=== PATIENT | male | born 1955 | race American Indian/Alaskan Native ===

== ENCOUNTER 2018-01-17 06:57 | Inpatient (IN) | payer MEDICARE, OTHER ==
[2018-01-17 07:10] VITALS: BMI 25.7
--- NOTE | 2018-01-17 07:16 | ED PDOC ---
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 Patient reports he may have had diarrhea over the past week associated with being unable to urinate causing him penile/ suprapubic pain, which has resolved after urinating. Patient notes last time he urinated was one day ago and that his abdominal pain started after being unable to urinate and states he had a penile implant in 2009. He reports last time he deflated his penis was 1 week ago after sex. He notes that he has kept it inflated since, because some times he forgets to. Patient takes Aspirin on a daily basis and is currently declining chest pain, shortness of breath, headache, fever, chills, cough, nausea, vomiting, dizziness or other complaints. No recent abx. PMD: Dr. May URO: Dr. 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) Hx Glaucoma: Yes - Renal Hx Renal Disorder: Yes Other/Comment: right kidney scar tissue - Endocrine/Metabolic Hx Diabetes Mellitus Type 1: Yes (dx 26 yrs old) - Hematological/Oncological Hx Blood Transfusions: Yes Hx Blood Transfusion Reaction: No - Integumentary Hx Dermatological Disorder: No Other/Comment: r ft foul smell gangrenous areas open red skin multiple ulcers black tip of great toe, pain and swelling, purulent drainage 2nd r toe ulcer, swelling +2 dry skin noted to ankle - Musculoskeletal/Rheumatological Hx Falls: No - Gastrointestinal Hx Gastrointestinal Disorders: No - Genitourinary/Gynecological Hx Genitourinary Disorders: Yes Hx Prostate Problems: Yes (ca) - Psychiatric Hx Substance Use: No - Surgical History Other/Comment: Kidney, Prostate - Anesthesia Hx Anesthesia Reactions: No Hx Malignant Hyperthermia: No Family/Social History - Physician Review Nursing Documentation Reviewed: Yes Family/Social History: Unknown Family HX Smoking Status: Never Smoked Hx Alcohol Use: No Hx Substance Use: No Allergies/Home Meds Allergies/Adverse Reactions: Allergies No Known Allergies Allergy (Verified 07/02/15 16:14) Home Medications: Home Meds Medication Instructions Recorded Confirmed Bimatoprost [Lumigan] 0.01 % EACHEYE HS 06/19/15 01/17/18 Brimonidine Tartrate/Timolol 1 drop OP BID 06/19/15 01/17/18 [Combigan Eye Drops] Carvedilol [Coreg] 3.125 mg PO BID 06/19/15 01/17/18 Dorzolamide 2%/Timolol 0.5% 1 drop OP BID 06/19/15 01/17/18 [Cosopt 2%-0.5% Opht] Insulin Human NPH/Reg [HumuLIN 20 units SC BRKDIN 06/19/15 01/17/18 70/30 (NPH/Reg)] Sitagliptin Phosphate [Januvia] 100 mg PO DAILY 06/19/15 01/17/18 Tamsulosin [Flomax] 0.4 mg PO HS 06/19/15 01/17/18 Tramadol HCl [Ultram] 50 mg PO BID PRN 08/31/15 01/17/18 Valsartan [Diovan] 180 mg PO DAILY 08/31/15 01/17/18 Aspirin [Ecotrin] 81 mg PO DAILY 01/17/18 01/17/18 Review of Systems - Review of Systems Constitutional: absent: Fevers ENT: absent: Sinus Congestion Respiratory: absent: SOB Cardiovascular: absent: Chest Pain Gastrointestinal: Stool Changes, Diarrhea, Hematochezia. absent: Abdominal Pain , Vomiting Genitourinary Male: Urinary Output Changes Musculoskeletal: absent: Back Pain Skin: absent: Rash Neurological: absent: Headache, Dizziness Endocrine: absent: Diaphoresis Physical Exam Vital Signs Reviewed: Yes Vital Signs Temp Pulse Resp BP Pulse Ox 01/17/18 08:45 85 18 138/68 98 01/17/18 07:10 98.3 F 71 20 163/84 H 97 01/17/18 06:57 98.3 F 71 20 163/84 H 97 Temperature: Afebrile Blood Pressure: Hypertensive Pulse: Regular Respiratory Rate: Normal Appearance: Positive for: Well-Appearing, Non-Toxic, Comfortable Pain Distress: None Mental Status: Positive for: Alert and Oriented X 3 - Systems Exam Head: Present: Atraumatic, Normocephalic Pupils: Present: PERRL Extroacular Muscles: Present: EOMI Respiratory/Chest: Present: Clear to Auscultation, Good Air Exchange. No: Respiratory Distress, Accessory Muscle Use, Wheezes, Rales, Retracting, Rhonchi Cardiovascular: Present: Regular Rate and Rhythm, Normal S1, S2. No: Murmurs Abdomen: Present: Normal Bowel Sounds. No: Tenderness, Distention, Peritoneal Signs Genitourinary Male: Present: Other (nurse noted bloody d/c from penile head; patient states he is unable to deflate ). No: Circumcised Penis, Lesions, Penile Discharge, Testicle Tenderness, Penile Swelling, Hernias, Testicle Swelling, Prostate Tenderness Lower Extremity: Present: Normal Inspection, Other (below the knee amputation ( RT foot) ). No: Edema Neurological: Present: GCS=15, CN II-XII Intact, Speech Normal Skin: Present: Warm, Dry, Normal Color. No: Rashes Psychiatric: Present: Alert, Oriented x 3, Normal Insight, Normal Concentration Medical Decision Making ED Course and Treatment: 01/17/18 Impression: 62 yr old male w/ hx of penile implant (inner pump), HTN, Gangrenous foot w/ L BKA amputation p/w ?hematocheiza and +hematuria. Pt unclear as to whether or not blood came from urine or stool. Pt is blind and states his neighbor saw his bloody towels on the floor with blood in the toilet seat. Pt notes pain is only associated with urinary retention, for which has been fully resolved. Guaic Negative on exam. Noted to have bloody discharge from penis w/ notable erection. Given clots noted need for possible sinha, however pt has had previous implant with instrumentation, hx of prostate CA and on ASA, and is currently voiding normally. Pt will likely require urology consult. [place] sinha placed. He denies any recent abx, but notes diarrhea is not associated w/ abdominal pain. No chest pain or sob. He notes he is no longer on plavix. Plan: -- EKG -- Labs -- Urinalysis -- Reassess and disposition Progress Notes: 01/17/18 EKG: Ordered, reviewed, and independently interpreted the EKG. Rate : 79 BPM Rhythm : NSR Interpretation : No ST-segment elevations or depressions, no T-wave inversions, normal intervals. No stemi 01/17/18 08:[address] May, who is aware of plan and recommends Dr. Edmond for urology. 01/17/18 09:10 labs reviewed, mildly anemic. Cr 1.0 will image. Case discussed with Dr. Edmond, who is aware of plan and is requesting CT scan. Started on Rocephin for UTI. UC sent. Given protonix for ?hematochezia. Admitted to Dr. May 01/17/18 10:12 - Lab Interpretations Lab Results: 01/17/18 07:05 01/17/18 07:05 Lab Results 01/17/18 09:01: PT 12.3, INR 1.07, APTT 34.6 01/17/18 07:05: Blood Type O POSITIVE, Antibody Screen Negative, BBK History Checked Patient has bt 01/17/18 07:05: Lactic Acid 1.3 01/17/18 07:05: Sodium 140, Potassium 4.1, Chloride 103, Carbon Dioxide 25, Anion Gap 16, BUN 14, Creatinine 1.0, Est GFR ( Amer) > 60, Est GFR (Non- Af Amer) > 60, Random Glucose 126 H, Calcium 9.6, Magnesium 1.9, Total Bilirubin 0.5, AST 65 H, ALT 50, Alkaline Phosphatase 438 H, Total Protein 8.6 H , Albumin 4.2, Globulin 4.3, Albumin/Globulin Ratio 1.0 L, Lipase 37 01/17/18 07:05: Urine Color Red, Urine Appearance Bloody, Urine pH 7.0, Ur Specific [place] 1.015, Urine Protein >=300 H, Urine Glucose (UA) Negative, Urine Ketones Trace H, Urine Blood Large H, Urine Nitrate Positive H, Urine Bilirubin Small H, Urine Urobilinogen 1.0 H, Ur Leukocyte Esterase Moderate H, Urine RBC Tntc, Urine WBC 5 - 10 01/17/18 07:05: WBC 6.9 D, RBC 4.19, Hgb 11.4 L, Hct 33.0 L, MCV 78.8 L, MCH 27.2, MCHC 34.5, RDW 14.0, Plt Count 163, MPV 9.7, Gran % 73.5 H, Lymph % (Auto ) 15.9 L, [place] % (Auto) 8.9 H, Eos % (Auto) 1.6, Baso % (Auto) 0.1, Gran # 5.09 , Lymph # (Auto) 1.1 L, [place] # (Auto) 0.6, Eos # (Auto) 0.1, Baso # (Auto) 0.01 - RAD Interpretation Radiology Orders: 01/17/18 09:16 ABD & PELVIS IV CONTRAST ONLY [CT] Stat - Medication Orders Current Medication Orders: Ceftriaxone Sodium (Rocephin 1 Gram Ivpb) 1 gm in 100 mls @ 100 mls/hr IVPB ONCE ONE PRN Reason: Protocol Stop: 01/17/18 10:06 Last Admin: 01/17/18 09:20 Dose: 100 mls/hr eMAR Start Stop Document 01/17/18 09:20 SRE (Rec: 01/17/18 09:21 [id number]) Intravenous Solution Start Date 01/17/18 Start Time 09:21 End Date 01/17/18 End time 10:20 Total Infusion Time 59 Sodium Chloride (Sodium Chloride 0.9%) 1,000 mls @ 200 mls/hr IV .Q5H [facility] Last Admin: 01/17/18 09:22 Dose: 200 mls/hr eMAR Start Stop Document 01/17/18 09:22 SRE (Rec: 01/17/18 09:23 [email or web address] [id number]) Intravenous Solution Start Date 01/17/18 Start Time 09:30 End Date 01/17/18 End time 14:30 Total Infusion Time 300 Discontinued Medications Pantoprazole Sodium (Protonix Ec Tab) 40 mg PO STAT STA Stop: 01/17/18 09:09 Last Admin: 01/17/18 09:19 Dose: 40 mg - Scribe Statement The provider has reviewed the documentation as recorded by the Wayne Mcfarlane Provider Catiaibe Attestation: All medical record entries made by the Scribe were at my direction and personally dictated by me. I have reviewed the chart and agree that the record accurately reflects my personal performance of the history, physical exam, medical decision making, and the department course for this patient. I have also personally directed, reviewed, and agree with the discharge instructions and disposition. Disposition/Present on Arrival - Present on Arrival Any Indicators Present on Arrival: No History of DVT/PE: No History of Uncontrolled Diabetes: No Urinary Catheter: No History Surgical Site Infection Following: None - Disposition Have Diagnosis and Disposition been Completed?: Yes Diagnosis: Hematuria, Priapism, unspecified, History of penile implant Disposition: HOSPITALIZED Disposition Time: 09:10 Patient Plan: Admission Condition: GOOD
[2018-01-17 08:22] LABS: BASO # 0.01 K/mm3 (0.0-2.0); BASO % 0.1 % (0.0-3.0); EOS # 0.1 (0.0-0.7); EOS % 1.6 % (1.5-5.0); GRAN # 5.09 (1.4-6.5); GRAN % 73.5 % (50.0-68.0); HEMOGLOBIN 11.4 g/dL (14.0-18.0); LYMPH # 1.1 (1.2-3.4); LYMPH % 15.9 % (22.0-35.0); MEAN CELL VOLUME 78.8 fl (80.0-105.0); MEAN CORPUSCULAR HEMOGLOBIN 27.2 pg (25.0-35.0); MEAN CORPUSCULAR HGB CONC 34.5 g/dl (31.0-37.0); MEAN PLATELET VOLUME 9.7 fl (7.0-11.0); MONO # 0.6 (0.1-0.6); MONO % 8.9 % (1.0-6.0); RBC 4.19 10^6/uL (3.5-6.1); WHITE BLOOD COUNT 6.9 10^3/ul (4.5-11.0)
[2018-01-17 08:29] LABS: ALBUMIN 4.2 g/dL (3.0-4.8); ALT/SGPT 50 U/L (7-56); AST/SGOT 65 U/L (17-59); BLOOD UREA NITROGEN 14 mg/dL (7-21); CALCIUM 9.6 mg/dL (8.4-10.5); GFR AFRICAN-AMERICAN > 60; GFR NON-AFRICAN AMERICAN > 60; LIPASE 37 U/L (23-300)
[2018-01-17 08:46] LABS: URINE BILIRUBIN SMALL (NEGATIVE); URINE BLOOD LARGE (NEGATIVE); URINE GLUCOSE (UA) NEGATIVE (NEGATIVE); URINE LEUKOCYTE ESTERASE MODERATE Leu/uL (NEGATIVE); URINE PROTEIN >=300 mg/dL (<30 mg/dL)
[2018-01-17 08:49] LABS: URINE APPEARANCE BLOODY (CLEAR); URINE COLOR RED (YELLOW)
[2018-01-17 09:03] LABS: URINE RBC TNTC /hpf (0-2)
[2018-01-17] MEDS ORDERED: cefTRIAXone 1 gm 1 GM/100 ML BAG IVPB ONE (09:07)
[2018-01-17] MEDS ORDERED: Pantoprazole 40 mg EC Tab PO STA (09:08)
[2018-01-17 09:19] LABS: INR 1.07; PARTIAL THROMBOPLASTIN TIME 34.6 Seconds (25.1-36.5); PROTHROMBIN TIME 12.3 SECONDS (9.4-12.5)
[2018-01-17] MEDS: Sodium Chloride 0.9% 1,000 ML IV SCH ×2 (09:22→14:52)
[2018-01-17] MEDS ORDERED: Iodixanol 320 mg/ml 150 ml Bottle IV ONE (09:51)
--- NOTE | 2018-01-17 09:55 | CARD ---
APPROVED REPORT Date of service: 01/17/2018 EKG Measurement Heart [id number] <Conclusion> Normal sinus rhythm Possible Left atrial enlargement Borderline ECG
--- NOTE | 2018-01-17 11:01 | CT ---
Date of service: 01/17/2018 PROCEDURE: CT Abdomen and Pelvis with contrast HISTORY: hx RCC, nephrectomy penile implant w/ hematuria COMPARISON: None. TECHNIQUE: Contrast dose: 150 cc of Visipaque Radiation dose: Total exam DLP = 838 mGy-cm. This CT exam was performed using one or more of the following dose reduction techniques: Automated exposure control, adjustment of the mA and/or kV according to patient size, and/or use of iterative reconstruction technique. FINDINGS: LOWER THORAX: Unremarkable. LIVER: Unremarkable. No gross lesion or ductal dilatation. GALLBLADDER AND BILE DUCTS: Unremarkable. PANCREAS: Unremarkable. No gross lesion or ductal dilatation. SPLEEN: Unremarkable. ADRENALS: Unremarkable. No mass. KIDNEYS AND URETERS: There is some parenchymal scarring in the posterior aspect of the left kidney consistent with a previous partial nephrectomy. The kidneys are otherwise unremarkable. VASCULATURE: Unremarkable. No aortic aneurysm. BOWEL: There is mural thickening in the descending and sigmoid colon. This may be due in part to lack of distension. Colitis cannot be excluded. APPENDIX: Normal appendix. PERITONEUM: Unremarkable. No free fluid. No free air. LYMPH NODES: Unremarkable. No enlarged lymph nodes. BLADDER: There are no bladder lesions. There is a penile implant with a reservoir to the right side of the bladder REPRODUCTIVE: Unremarkable. BONES: No acute fracture. OTHER FINDINGS: None. IMPRESSION: There is some parenchymal scarring in the posterior aspect of the left kidney consistent with a previous partial nephrectomy. The kidneys are otherwise unremarkable. There is mural thickening in the descending and sigmoid colon. This may be due in part to lack of distension. Colitis cannot be excluded.
--- NOTE | 2018-01-17 13:02 | HP ---
Copied To: JUAN MIGUEL Lopez MD Attending MD: JUAN MIGUEL Lopez MD DATE OF EXAM: 01/17/2018 HISTORY OF PRESENT ILLNESS: The patient is a 62-year-old male admitted through the emergency department with gross hematuria x1-2 days. The patient has mild suprapubic discomfort. Denies fever, chills. No nausea, no vomiting. No diarrhea. The patient has a history of left partial nephrectomy for renal cell carcinoma in the past as well as history of erectile dysfunction secondary to diabetes and vascular disease, status post penile implant. The patient also has a history of CA of prostate in the past. He is admitted for further evaluation and treatment. PAST MEDICAL HISTORY: Includes type 2 diabetes mellitus xgreater than 20 years, hypertension. The patient has a history of CVA with mild right hemiparesis. He also has a history of glaucoma with blindness. PAST SURGICAL HISTORY: The patient is status post partial nephrectomy, status post penile implant, history of CA of the prostate. The patient is also status post right below-knee amputation for gangrene of the right lower extremity. CURRENT MEDICATIONS: The patient's current medications include Diovan 180 mg daily, tramadol 50 mg twice daily, Flomax 0.4 mg daily, Januvia 100 mg daily, Humulin 70/30 55 units in the morning 50 units at night, carvedilol 3.125 mg twice daily, Januvia 100 mg daily, Ecotrin 81 mg daily. He is also on Lumigan, Combigan and Cosopt eyedrops for his glaucoma. ALLERGIES: THE PATIENT HAS NO KNOWN DRUG ALLERGIES. FAMILY HISTORY: Noncontributory. SOCIAL HISTORY: The patient lives alone. He is independent with ADLs, needs assistance with IADLs. There is no history of tobacco or alcohol use. REVIEW OF SYSTEMS: The patient denies chest pain, shortness of breath. The patient was reported to have some bloody stool in the emergency department. No jaundice. No dysuria. No pyuria. PHYSICAL EXAMINATION: GENERAL: The patient is a well-developed male, in no acute distress. VITAL SIGNS: Blood pressure 173/84, temperature 98.3, pulse 89, respiratory rate 18. HEENT: Head is normocephalic, atraumatic. The patient is blind bilaterally. NECK: Supple with no thyromegaly. No carotid bruit. No adenopathy. LUNGS: Clear. HEART: Regular rate and rhythm. ABDOMEN: Soft with some mild suprapubic discomfort on deep palpation. No guarding no rebound. A [place] catheter is intact. Urine is grossly bloody. EXTREMITIES: The patient is status post right below-knee amputation, stump is healed with no edema. NEUROLOGIC: The patient is awake and oriented x3 without focal, sensory or motor deficits. SKIN: Warm and dry. LABORATORY DATA: WBC is 6.9, hemoglobin 11.4, hematocrit 33. Sodium 140, potassium 4.1, chloride 103, CO2 of 25, BUN 14, creatinine 1, glucose 126. AST is slightly elevated at 65, alkaline phosphatase 438, total protein 8.6, lipase is 37. IMPRESSION: 1. Gross hematuria of undetermined etiology. 2. History of renal cell carcinoma, status post partial nephrectomy. 3. History of penile implant for erectile dysfunction. 4. Type 2 diabetes mellitus. 5. Peripheral vascular disease, status post right below-knee amputation. 6. Hypertension. 7. Blindness secondary to glaucoma. PLAN: We will monitor hemoglobin and hematocrit, obtain Urology consultation with Dr. Edmond and GI consultation with Dr. Seaman. JUAN MIGUEL Lopez MD
--- NOTE | 2018-01-17 15:20 | CP.PCM.CON ---
History of Present Illness - History of Present Illness History of Present Illness: Seen and examined at bedside, chart reviewed. Request for consult is Rectal bleeding. HPI: This is a 4f4 year old male with a PMH of Glucoma with blindness, DM type II, PVD with RBKA, Renal cell carcinoma, s/p nephrectomy w/ erectile dysfunction has a penile implant was brought to the ER for gross hematuria that started 1-2 days ago. As per reports the patient was questioned to have a bloody BM vs hematuria. The patient is visually impaired and has a director nursing service at home and has not had any episode of BRBPR of melena. He did c/o constipation and took several stool softeners and now having diarrhea. He had difficulty in urination, c/o suprapubic pain, after urination he reports relief of pain and as of note no abdominal pain. He denies N/V fever or chills. No SOB or CP. Patient now has a sinha w/ gross hematuria, no reports of rectal bleeding or diarrhea. He was found to have low blood sugar on admission, he tolerated his lunch. He did have a ct scan of abdomen and pelvis with IV contrast and this reported mural thickening in the descending and sigmoid colon, maybe due to lack of distension but colitis cannot be excluded. Also noted parenchymal scarring in the left kidney with a previous nephrectomy, otherwise kidney are unremarkable.Patient recall having a EGD and colon w/ Dr. Seaman, chart was reviewed and an EGD was noted in 2010 for Anemia, noted to have gastritis and an EUS in the past for Elevated LFT. PMH: DM type II, PVD, Renal cell cancer,prostate cancer, CVA w right hemiparesis ,glucoma w/ blindness, HTN, erectile dysfunction PSH: penile implant, left partial nephrectomy,right BKA for gangrene, EGD 2011: gastritis, EUS: elevated LFT;? colon Allergies: NKDA Family HX: noncontributory MEDS: reviewed as per MAR Social HS: denies smoking, etoh, illicit drugs ROS: systems reviewed with positive findings, see HPI Past Patient History - Infectious Disease Hx of Infectious Diseases: None - Past Social History Smoking Status: Former Smoker - CARDIAC Hx Hypertension: Yes - PULMONARY Hx Respiratory Disorders: No - NEUROLOGICAL Hx Neurological Disorder: No - HEENT Hx Blind: Yes - RENAL Hx Chronic Kidney Disease: Yes Other/Comment: right kidney scar tissue - ENDOCRINE/METABOLIC Hx Diabetes Mellitus Type 2: Yes - HEMATOLOGICAL/ONCOLOGICAL Hx Cancer: Yes (prostate cancer, treated) - INTEGUMENTARY Hx Dermatological Problems: No - MUSCULOSKELETAL/RHEUMATOLOGICAL Hx Falls: No Other/Comment: rt BKA - GASTROINTESTINAL Hx Gastrointestinal Disorders: No - GENITOURINARY/GYNECOLOGICAL Hx Hematuria: Yes Hx Prostate Problems: Yes - PSYCHIATRIC Hx Substance Use: No - SURGICAL HISTORY Hx Amputation: Yes (rt bka) - ANESTHESIA Hx Anesthesia Reactions: No Hx Malignant Hyperthermia: No Meds Allergies/Adverse Reactions: Allergies Allergy/AdvReac Type Severity Reaction Status Date / Time No Known Allergies Allergy Verified 07/02/15 16:14 - Medications Medications: Current Medications Carvedilol (Coreg) 3.125 mg PO BID [facility] Last Admin: 01/17/18 12:17 Dose: 3.125 mg Dorzolamide/Timolol (Cosopt 2%-0.5% Opht) 1 drop OU BID [facility] Sodium Chloride (Sodium Chloride 0.9%) 1,000 mls @ 200 mls/hr IV .Q5H [facility] Last Admin: 01/17/18 09:22 Dose: 200 mls/hr Insulin Human Regular (Humulin R Low) 0 units SC ACHS [facility] PRN Reason: Protocol Losartan Potassium (Cozaar) 50 mg PO DAILY [facility] Last Admin: 01/17/18 12:18 Dose: 50 mg Tamsulosin HCl (Flomax) 0.4 mg PO DAILY [facility] Tramadol HCl (Ultram) 50 mg PO TID [facility] Physical Exam - Constitutional Appears: No Acute Distress - Head Exam Head Exam: NORMOCEPHALIC - Eye Exam Eye Exam: Normal appearance. absent: Scleral icterus - ENT Exam ENT Exam: Mucous Membranes Moist - Neck Exam Neck exam: Positive for: Normal Inspection - Respiratory Exam Respiratory Exam: Clear to Auscultation Bilateral, NORMAL BREATHING PATTERN. absent: Respiratory Distress - Cardiovascular Exam Cardiovascular Exam: +S1, +S2 - GI/Abdominal Exam GI & Abdominal Exam: Normal Bowel Sounds, Soft. absent: Guarding, Organomegaly , Rebound, Tenderness Additional comments: old surgical scar noted LUQ - Rectal Exam Rectal Exam: Hemorrhoids. absent: Bloody Stool, Fecal Impaction Additional comments: no mass palpated,no blood noted, small brown stool on glove noted has lipoma? right inner thigh, patient says that he has had that since 10 years old, nontender - Extremities Exam Extremities exam: Negative for: calf tenderness (right BKA), pedal edema - Neurological Exam Neurological exam: Alert, Oriented x3 - Skin Skin Exam: Dry, Warm Results - Vital Signs Recent Vital Signs: Last Vital Signs Temp 98.3 F 01/17/18 10:56 Pulse 110 H 01/17/18 12:18 Resp 12 01/17/18 11:23 BP 153/4 H 01/17/18 12:18 Pulse Ox 98 01/17/18 10:56 - Labs Result Diagrams: 01/17/18 07:05 01/17/18 07:05 Labs: Laboratory Results - last 24 hr 01/17/18 11:37 POC Glucose (mg/dL) 49 L Assessment & Plan - Assessment and Plan (Free Text) Assessment: ASSESSMENT: Abdominal Pain, mainly suprapubic,now resolved after urination Questionable rectal bleeding, rectal exam negative Possible colitis, s/p ct scan , mural thickening in descending and sigmoid colon , maybe due to lack of distension Gross Hematuria/ UTI H/O Renal cell cancer, s/o nephrectomy H/O Prostate cancer DM type II Glucoma w/ blindness PLAN: monitor H/H, for overt GI bleeding if have episode of diarrhea obtain stool Cdiff diet as tolerated urine culture result pending continue ceftriaxone urology on board will continue to monitor consider endoscopy if patient has occurrence of rectal bleeding, will monitor closely. Thank you for this consult and for allowing us to participate in your patient care, further recommendation based upon clinical course. Case discussed with Dr. Ross covering Dr. Seaman.
[2018-01-17] MEDS: Insulin Reg-LOW-Coverage SC SCH ×2 (17:22→23:25)
[2018-01-17] MEDS: Insulin Human NPH/Reg 70/30 Vial(3 ml) SC SCH (17:35)
[2018-01-17] MEDS: Dorzolamide 2%/Timolol 0.5% 100 DROP/10 ML BOTTLE OU SCH (17:38)
[2018-01-18] MEDS: Sodium Chloride 0.9% 1,000 ML IV SCH ×2 (01:36→06:18)
[2018-01-18] MEDS: Insulin Reg-LOW-Coverage SC SCH ×3 (08:11→16:39)
[2018-01-18] MEDS: Dorzolamide 2%/Timolol 0.5% 100 DROP/10 ML BOTTLE OU SCH ×2 (09:51→17:57)
[2018-01-18] MEDS: Insulin Human NPH/Reg 70/30 Vial(3 ml) SC SCH (09:52)
[2018-01-18] MEDS ORDERED: cefTRIAXone 1 gm 1 GM/100 ML BAG IVPB SCH (10:00)
--- NOTE | 2018-01-18 10:20 | CON ---
Copied To: Emiliano Ross MD Attending MD: Emiliano Ross MD ADDENDUM DATE: 01/17/2018 Addendum to consultation performed by AVINASH Cortez REASON FOR CONSULTATION: Possible rectal bleeding. HISTORY OF PRESENT ILLNESS: The patient has had gross hematuria. There was apparently blood found on the toilet. The patient again had hematuria. He has a history of prostate cancer and renal cell cancer status post nephrectomy. CT scan of the abdomen and pelvis shows nonspecific mural thickening of the sigmoid colon. This is related to under distention. There was no rectal bleeding noted since the patient has been in the emergency room or the hospital. Rectal exam was negative for blood. Again, there is no evidence of rectal bleeding. The bleeding seen in the toilet was most likely secondary to hematuria. RECOMMENDATIONS: 1. Urology evaluation. 2. Consider elective colonoscopy if the patient has not had one in the last several years. Emiliano Ross MD
[2018-01-18 11:13] LABS: HEMOGLOBIN 9.5 g/dL (14.0-18.0); MEAN CELL VOLUME 79.5 fl (80.0-105.0); MEAN CORPUSCULAR HEMOGLOBIN 27.8 pg (25.0-35.0); MEAN CORPUSCULAR HGB CONC 34.9 g/dl (31.0-37.0); MEAN PLATELET VOLUME 8.7 fl (7.0-11.0); RBC 3.42 10^6/uL (3.5-6.1); RED CELL DISTRIBUTION WIDTH 13.9 % (11.5-14.5); WHITE BLOOD COUNT 5.4 10^3/ul (4.5-11.0)
--- NOTE | 2018-01-18 11:41 | CP.PCM.PN ---
Subjective - Date & Time of Evaluation Date of Evaluation: 01/18/18 Time of Evaluation: 10:10 - Subjective Subjective: S&E at bedside, chart reviewed, no acute overnight events, hematuria resolved, urine in sinha bag is yellow. Patient denies fever, chills, N/V or abdominal pain. No BM / diarrhea. No new complaints. Objective - Vital Signs/Intake and Output Vital Signs (last 24 hours): Temp Pulse Resp BP Pulse Ox 97.5 F L 73 20 161/75 H 98 01/18/18 06:00 01/18/18 09:52 01/18/18 06:00 01/18/18 09:52 01/18/18 06:00 Intake and Output: 01/18/18 01/18/18 06:59 18:59 Intake Total 3620 Output Total 1575 Balance 2045 - Medications Medications: Current Medications Carvedilol (Coreg) 6.25 mg PO BID [facility] Dorzolamide/Timolol (Cosopt 2%-0.5% Opht) 1 drop OU BID [facility] Last Admin: 01/18/18 09:51 Dose: 1 drop Ceftriaxone Sodium (Rocephin 1 Gram Ivpb) 1 gm in 100 mls @ 100 mls/hr IVPB DAILY SITA PRN Reason: Protocol Last Admin: 01/18/18 09:55 Dose: 100 mls/hr Insulin Human Regular (Humulin R Low) 0 units SC ACHS SITA PRN Reason: Protocol Last Admin: 01/18/18 08:11 Dose: Not Given Losartan Potassium (Cozaar) 50 mg PO DAILY [facility] Last Admin: 01/18/18 09:52 Dose: 50 mg Tamsulosin HCl (Flomax) 0.4 mg PO DAILY [facility] Last Admin: 01/18/18 09:52 Dose: 0.4 mg Tramadol HCl (Ultram) 50 mg PO TID [facility] Last Admin: 01/18/18 09:55 Dose: 50 mg - Labs Labs: 01/18/18 11:00 PT 12.3 SECONDS (9.4-12.5) 01/17/18 09:01 INR 1.07 01/17/18 09:01 APTT 34.6 Seconds (25.1-36.5) 01/17/18 09:01 - Constitutional Appears: No Acute Distress - Head Exam Head Exam: NORMOCEPHALIC - Eye Exam Eye Exam: Normal appearance. absent: Scleral icterus - ENT Exam ENT Exam: Mucous Membranes Moist - Neck Exam Neck Exam: Normal Inspection - Respiratory Exam Respiratory Exam: NORMAL BREATHING PATTERN. absent: Respiratory Distress - Cardiovascular Exam Cardiovascular Exam: +S1, +S2 - GI/Abdominal Exam GI & Abdominal Exam: Soft, Normal Bowel Sounds. absent: Guarding, Tenderness, Rebound - Extremities Exam Extremities Exam: absent: Calf Tenderness Additional comments: right BKA - Neurological Exam Neurological Exam: Alert, Awake, Oriented x3 - Skin Skin Exam: Dry, Warm Assessment and Plan - Assessment and Plan (Free Text) Assessment: ASSESSMENT: Abdominal Pain, mainly suprapubic,now resolved after urination Questionable rectal bleeding, rectal exam negative Possible colitis, s/p ct scan , mural thickening in descending and sigmoid colon , maybe due to lack of distension Resolved Gross Hematuria/ UTI H/O Renal cell cancer, s/o nephrectomy H/O Prostate cancer DM type II Glucoma w/ blindness PLAN: monitor H/H, for overt GI bleeding, cehck cbc this am if have episode of diarrhea obtain stool Cdiff diet as tolerated urine culture result pending continue ceftriaxone urology on board will continue to monitor No episode of rectal bleeding recommend elective outpatient colonoscopy discussed w/ patient. Case discussed with Dr. Ross covering Dr. Seaman.
--- NOTE | 2018-01-18 13:01 | RAD ---
Date of service: 01/18/2018 HISTORY: cough COMPARISON: 09/04/2015 FINDINGS: LUNGS: No active pulmonary disease. PLEURA: No significant pleural effusion identified, no pneumothorax apparent. CARDIOVASCULAR: Normal. OSSEOUS STRUCTURES: No significant abnormalities. VISUALIZED UPPER ABDOMEN: Normal. OTHER FINDINGS: None. IMPRESSION: No active disease.
--- NOTE | 2018-01-18 13:07 | CON ---
Copied To: Andres Edmond MD Attending MD: Andres Edmond MD DATE: 01/18/2018 UROLOGY CONSULTATION CHIEF COMPLAINT: Gross hematuria. HISTORY OF PRESENT ILLNESS: This is a 62-year-old male who is known to me, although I have not seen him in a few years. The patient has multiple medical issues including diabetes, erectile dysfunction, history of a left partial nephrectomy for renal cell carcinoma, and vascular disease. The patient presented with few days of gross painless hematuria. He has been voiding without difficulty. He has a penile prosthesis in place and reportedly this could not be deflated as well. consultation was requested regarding the above. PAST MEDICAL HISTORY: Significant for problems as noted in the HPI as well as hypertension, CVA, blindness, glaucoma, hemiparesis, and BKA for gangrene. MEDICATIONS AT HOME: Include Diovan, tramadol, Flomax, Januvia, Humulin, Coreg, aspirin, Lumigan, Combigan, and Cosopt. ALLERGIES: NO KNOWN DRUG ALLERGIES. FAMILY HISTORY: Noncontributory. SOCIAL HISTORY: The patient lives alone. No smoking or EtOH use. REVIEW OF SYSTEMS: The patient reports he is currently feeling well. He denies any dysuria or urgency. Does report gross hematuria. Does report feeling slightly lethargic. He denies any fever or chills. Denies any flank pain. Other systems are negative. PHYSICAL EXAMINATION: GENERAL: The patient is awake and alert. He is answering questions. He is in no acute distress. VITAL SIGNS: He has been afebrile, temperature 97.5; pulse of 73; BP 161/75; respirations are 20. NECK: Supple. There is no thyromegaly or adenopathy noted. CHEST: Revealed normal inspiratory effort. CARDIAC: Showed a positive S1, S2. There is no peripheral edema noted. ABDOMEN: The abdomen is soft, nontender, nondistended. There is no hepatosplenomegaly or costovertebral angle tenderness. GENITOURINARY: Phallus is normal. There is an inflatable penile prosthesis in place. It is not fully inflated at this time. There is a condom catheter in place. There is clear urine in the tube and bag. His bladder is not palpably distended. Scrotum is normal. There is a pump for the IPP. There is no tenderness or edema. Testes are descended. They are nontender, no masses. Epididymis are normal. LABORATORY DATA: WBC count was 6.9. Urinalysis showed greater than 300 protein, large blood, positive nitrites, moderate leukocyte esterase. GFR greater than 60. Elevated alkaline phosphatase. On radiologic exam, the patient had a CT scan of the abdomen and pelvis with IV contrast done yesterday. There is some parenchymal scarring in the posterior aspect of the left kidney. The patient had a previous partial nephrectomy. Kidneys were otherwise unremarkable. There was some thickening noted in the descending and sigmoid colon. There is some parenchymal scarring in the kidney, otherwise kidneys were unremarkable. Bladder was unremarkable. IMPRESSION AND PLAN: This is a 62-year-old male with diabetes, erectile dysfunction, vascular disease, history of renal cell carcinoma. Urologically, the gross hematuria has cleared with fluids and antibiotics. Based on the urine, there is likely an infection and this is likely a hemorrhagic cystitis. There does not appear to be any recurrence of the patient's renal cell carcinoma. Plan will be to continue antibiotics. Awaiting the results of the culture. The patient can then be discharged home. He will need to follow up in my office and he will need to have a cystoscopy, which can be done under local in my office to rule out any intravesical pathology and rule out any erosion of the penile prosthesis into the urethra, although this is clinically not appeared to be the case. Thank you for allowing me to participate in the care of this patient. We will follow him with you. Andres Edmond MD
[2018-01-19] MEDS: Insulin Human NPH/Reg 70/30 Vial(3 ml) SC SCH ×2 (07:26→10:17)
[2018-01-19 07:39] LABS: BASO # 0.02 K/mm3 (0.0-2.0); BASO % 0.3 % (0.0-3.0); EOS # 0.1 (0.0-0.7); EOS % 2.1 % (1.5-5.0); GRAN # 4.58 (1.4-6.5); GRAN % 69.1 % (50.0-68.0); HEMOGLOBIN 10.3 g/dL (14.0-18.0); LYMPH # 1.2 (1.2-3.4); LYMPH % 18.7 % (22.0-35.0); MEAN CELL VOLUME 79.4 fl (80.0-105.0); MEAN CORPUSCULAR HEMOGLOBIN 27.6 pg (25.0-35.0); MEAN CORPUSCULAR HGB CONC 34.8 g/dl (31.0-37.0); MEAN PLATELET VOLUME 9.6 fl (7.0-11.0); MONO # 0.7 (0.1-0.6); MONO % 9.8 % (1.0-6.0); RBC 3.73 10^6/uL (3.5-6.1); WHITE BLOOD COUNT 6.6 10^3/ul (4.5-11.0)
[2018-01-19 07:45] LABS: ALB/GLOB RATIO 0.9 (1.1-1.8); ALBUMIN 3.5 g/dL (3.0-4.8); ALT/SGPT 41 U/L (7-56); AST/SGOT 52 U/L (17-59); BLOOD UREA NITROGEN 9 mg/dL (7-21); CALCIUM 9.3 mg/dL (8.4-10.5); GFR AFRICAN-AMERICAN > 60; GFR NON-AFRICAN AMERICAN > 60
[2018-01-19] MEDS: Insulin Reg-LOW-Coverage SC SCH ×2 (08:12→11:53)
--- NOTE | 2018-01-19 08:40 | PN ---
Copied To: Emiliano Ross MD Attending MD: Emiliano Ross MD ADDENDUM DATE: 01/18/2018 SUBJECTIVE: An addendum to a progress note performed by Adela Dobbins APN. I personally examined this patient myself. The patient's hematuria has resolved, suprapubic pain has resolved. There has been no evidence of any rectal bleeding. Rectal exam was negative for any blood. The patient is stable from GI. The patient was instructed to follow up with Dr. Seaman for an elective outpatient colonoscopy. Emiliano Ross MD
--- NOTE | 2018-01-19 09:24 | DS ---
Copied To: JUAN MIGUEL Lopez MD Attending MD: JUAN MIGUEL Lopez MD HOSPITAL COURSE: The patient is a 62-year-old male, admitted through the emergency department with gross hematuria x1-2 days. The patient received IV Rocephin 1 g every 24 hours. His urine became clear. His urine culture grew Serratia marcescens sensitive to Cipro. The patient was seen in consultation by Urology, Dr. Edmond. He was also seen in consultation by GI, Dr. Ross. No further workup is planned. He is medically stable for discharge at the present time. PHYSICAL EXAMINATION: VITAL SIGNS: Blood pressure 118/78, temperature 99.2, pulse 69, respiratory rate 19. LUNGS: Clear. HEART: Regular rate and rhythm. ABDOMEN: Soft, nontender. Bowel sounds are normoactive. EXTREMITIES: Without cyanosis, clubbing or edema. NEUROLOGICAL: The patient is awake and oriented x3 without focal sensory or motor deficits. SKIN: Warm and dry. GENITOURINARY: [place] catheter is intact. Urine is clear. IMPRESSION: 1. Gross hematuria, probably secondary to urinary tract infection from Serratia marcescens. 2. History of renal cell carcinoma, status post partial nephrectomy. 3. History of penile implant for erectile dysfunction. 4. Type 2 diabetes mellitus. 5. Peripheral vascular disease, status post right below-knee amputation. 6. Hypertension. 7. Blindness secondary to glaucoma. PLAN: The patient will be discharged to home in stable condition on the following medications; valsartan 180 mg daily, tramadol 50 mg daily, Flomax 0.4 mg at bedtime, Januvia 100 mg daily, Cosopt eye drops, carvedilol 3.125 mg twice daily, Combigan and Lumigan eye drops, Ecotrin 81 mg daily. He was also given a prescription for Cipro 500 mg twice daily for 5 days as well as for tolterodine LA 2 mg daily for overactive bladder and Tessalon Perles 100 mg every 6 hours p.r.n. cough. He had a chest x-ray, which showed no active disease prior to discharge. Activity is ad libitum. He will follow a consistent carbohydrate heart-healthy diet. He will be followed as an outpatient within the next 1-2 weeks. JUAN MIGUEL Lopez MD [facility] # [id number]
[2018-01-19] MEDS: Dorzolamide 2%/Timolol 0.5% 100 DROP/10 ML BOTTLE OU SCH (10:16)
--- NOTE | 2018-01-19 11:02 | CP.PCM.PN ---
Subjective - Date & Time of Evaluation Date of Evaluation: 01/19/18 Time of Evaluation: 10:00 - Subjective Subjective: S&E at bedside, chart reviewed, no acute overnight events reported. No BM since admission, denies N/V or abdominal pain. Tolerating oral intake, No overt GI bleeding reported. No hematuria. Urine culture reporting Serratia Marcensceus. Patient reported to on occasion have coughing after eating, patient endorses that this happens mainly when he eats fast and he was observed by nursing not sitting up in proper position. Did well with breakfast. Objective - Vital Signs/Intake and Output Vital Signs (last 24 hours): Temp Pulse Resp BP Pulse Ox 99.2 F 74 19 154/74 H 97 01/19/18 06:00 01/19/18 10:16 01/19/18 06:00 01/19/18 10:16 01/19/18 06:00 Intake and Output: 01/19/18 01/19/18 06:59 18:59 Intake Total 900 Output Total 1500 Balance -600 - Medications Medications: Current Medications Carvedilol (Coreg) 6.25 mg PO BID [facility] Last Admin: 01/19/18 10:15 Dose: 6.25 mg Dorzolamide/Timolol (Cosopt 2%-0.5% Opht) 1 drop OU BID [facility] Last Admin: 01/19/18 10:16 Dose: 1 drop Insulin Human Regular (Humulin R Low) 0 units SC ACHS [facility]S AT [facility] PRN Reason: Protocol Last Admin: 01/19/18 08:12 Dose: 2 units Losartan Potassium (Cozaar) 50 mg PO DAILY [facility] Last Admin: 01/19/18 10:16 Dose: 50 mg Tamsulosin HCl (Flomax) 0.4 mg PO DAILY [facility] Last Admin: 01/19/18 10:16 Dose: 0.4 mg Tramadol HCl (Ultram) 50 mg PO TID [facility]S [facility] Last Admin: 01/19/18 10:17 Dose: 50 mg - Labs Labs: 01/19/18 07:00 01/19/18 07:00 PT 12.3 SECONDS (9.4-12.5) 01/17/18 09:01 INR 1.07 01/17/18 09:01 APTT 34.6 Seconds (25.1-36.5) 01/17/18 09:01 - Constitutional Appears: No Acute Distress - Head Exam Head Exam: NORMOCEPHALIC - Eye Exam Eye Exam: Normal appearance. absent: Scleral icterus - ENT Exam ENT Exam: Mucous Membranes Moist - Neck Exam Neck Exam: Normal Inspection - Respiratory Exam Respiratory Exam: NORMAL BREATHING PATTERN. absent: Respiratory Distress - Cardiovascular Exam Cardiovascular Exam: +S1, +S2 - GI/Abdominal Exam GI & Abdominal Exam: Soft, Normal Bowel Sounds. absent: Guarding, Tenderness, Organomegaly, Rebound - Extremities Exam Extremities Exam: absent: Calf Tenderness, Pedal Edema - Neurological Exam Neurological Exam: Alert, Awake, Oriented x3 - Skin Skin Exam: Dry, Warm Assessment and Plan - Assessment and Plan (Free Text) Assessment: ASSESSMENT: Resolved Abdominal Pain, mainly suprapubic, resolved after urination Questionable rectal bleeding, rectal exam negative Possible colitis, s/p ct scan , mural thickening in descending and sigmoid colon , maybe due to lack of distension Resolved Gross Hematuria/ UTI H/O Renal cell cancer, s/o nephrectomy H/O Prostate cancer DM type II Glucoma w/ blindness PLAN: monitor H/H, for overt GI bleeding if have episode of diarrhea obtain stool Cdiff diet as tolerated urine culture: Serratia Marcensceus on IV ceftriaxone urology on board will continue to monitor patient can take on discharge Miralax daily, monitor stool, patient did not want to start this am, he is for discharge. No episode of rectal bleeding recommend elective outpatient EGD and colonoscopy discussed w/ patient. Discussed with Dr. Ross covering Dr. Seaman.
[2018-01-19 13:08] VITALS: BP 134/70; PULSE 80; RESP 20; TEMP 98.8; O2SAT 95
== END 2018-01-19 14:13 | disposition home or self-care (01) | DRG 690 ==
LOC: ED 06:57 → ERH 09:18 → 5RNO 11:11
PROVIDERS: ADMIT Internal Medicine; ATTEND Internal Medicine
DX: N30.91 Cystitis, unspecified with hematuria (principal); I69.351 Hemiplegia and hemiparesis following cerebral infarction affecting right dominant side; N48.30 Priapism, unspecified; I10 Essential (primary) hypertension; N52.1 Erectile dysfunction due to diseases classified elsewhere; E11.69 Type 2 diabetes mellitus with other specified complication; E11.51 Type 2 diabetes mellitus with diabetic peripheral angiopathy without gangrene; H40.9 Unspecified glaucoma; H54.7 Unspecified visual loss; N32.81 Overactive bladder; K59.00 Constipation, unspecified; Z85.528 Personal history of other malignant neoplasm of kidney; Z85.46 Personal history of malignant neoplasm of prostate; Z96.0 Presence of urogenital implants; Z90.5 Acquired absence of kidney; Z89.511 Acquired absence of right leg below knee; Z87.891 Personal history of nicotine dependence

== ENCOUNTER 2018-10-13 15:24 | Inpatient (IN) | payer MEDICARE, OTHER ==
[2018-10-13 15:24] VITALS: BMI 25.7
--- NOTE | 2018-10-13 15:46 | ED PDOC ---
Arrival/HPI - General Historian: Patient - History of Present Illness Narrative History of Present Illness (Text): 10/13/18 15:59 Pt is a 63 yo male with a PMH of DM, right BKA, HTN, colon cancer sp chemo radiation who presents to the ED complaining of 4-5 episodes of vomiting after eating a meal with grilled chicken from a restaurant. Pt denies sick contacts, or anyone else eating the same meal that he ate. Pt is visually impaired and unable to determine if there was blood in the vomitus. Pt denies diarrhea, but reports constipation for which he took milk of magnesia. Pt tried abram roberto and [place]-seltzer for his nausea. Time/Duration: 24 hours Symptom Onset: Sudden Symptom Course: Improving Quality: Cramping Severity Level: 4 <Rick Diaz - Last Filed: 10/13/18 17:52> <Kenny Martínez - Last Filed: 10/13/18 17:56> - General Chief Complaint: GI Problem Past Medical History - Past History Past History: Non-Contributing - Infectious Disease Hx of Infectious Diseases: None - Cardiac Hx Hypertension: Yes - Pulmonary Hx Respiratory Disorders: No - Neurological Hx Neurological Disorder: No - HEENT Hx Blind: Yes - Renal Hx Renal Disorder: Yes Other/Comment: right kidney scar tissue - Endocrine/Metabolic Hx Diabetes Mellitus Type 2: Yes - Hematological/Oncological Hx Cancer: Yes (prostate cancer, treated) - Integumentary Hx Dermatological Disorder: No - Musculoskeletal/Rheumatological Hx Falls: No Other/Comment: rt BKA - Gastrointestinal Hx Gastrointestinal Disorders: No - Genitourinary/Gynecological Hx Hematuria: Yes Hx Prostate Problems: Yes - Psychiatric Hx Psychophysiologic Disorder: No Hx Substance Use: No - Surgical History Hx Amputation: Yes (rt bka) - Anesthesia Hx Anesthesia Reactions: No Hx Malignant Hyperthermia: No <Rick Diaz - Last Filed: 10/13/18 17:52> Family/Social History Family/Social History: No Known Family HX Smoking Status: Former Smoker Hx Alcohol Use: No Hx Substance Use: No <Rick Diaz - Last Filed: 10/13/18 17:52> Allergies/Home Meds <Rick Diaz - Last Filed: 10/13/18 17:52> <Kenny Martínez - Last Filed: 10/13/18 17:56> Allergies/Adverse Reactions: Allergies No Known Allergies Allergy (Verified 10/13/18 15:28) Home Medications: Home Meds Medication Instructions Recorded Confirmed Bimatoprost [Lumigan] 0.01 % EACHEYE HS 06/19/15 01/17/18 Brimonidine Tartrate/Timolol 1 drop OP BID 06/19/15 01/17/18 [Combigan Eye Drops] Carvedilol [Coreg] 3.125 mg PO BID 06/19/15 01/17/18 Dorzolamide 2%/Timolol 0.5% 1 drop OP BID 06/19/15 01/17/18 [Cosopt 2%-0.5% Opht] Insulin Human NPH/Reg [HumuLIN 20 units SC BRKDIN 06/19/15 01/17/18 70/30 (NPH/Reg)] Sitagliptin Phosphate [Januvia] 100 mg PO DAILY 06/19/15 01/17/18 Tamsulosin [Flomax] 0.4 mg PO HS 06/19/15 01/17/18 Tramadol HCl [Ultram] 50 mg PO BID PRN 08/31/15 01/17/18 Valsartan [Diovan] 180 mg PO DAILY 08/31/15 01/17/18 Aspirin [Ecotrin] 81 mg PO DAILY 01/17/18 01/17/18 Review of Systems - Physician Review All systems were reviewed & negative as marked: Yes - Review of Systems Constitutional: Normal Eyes: Normal ENT: Normal Respiratory: Normal Cardiovascular: Normal Gastrointestinal: Abdominal Pain, Constipation, Nausea, Vomiting. absent: Stool Changes, Diarrhea Musculoskeletal: Normal Skin: Normal Neurological: Normal Endocrine: Normal Hemo/Lymphatic: Normal Psychiatric: Normal <Rick Diaz - Last Filed: 10/13/18 17:52> Physical Exam Vital Signs Reviewed: Yes Temperature: Afebrile Pulse: Regular Respiratory Rate: Normal Appearance: Positive for: Comfortable Mental Status: Positive for: Alert and Oriented X 3 - Systems Exam Head: Present: Atraumatic, Normocephalic Pupils: Present: Other (visually impaired) Mouth: Present: Moist Mucous Membranes Neck: Present: Normal Range of Motion Respiratory/Chest: Present: Clear to Auscultation, Good Air Exchange. No: Respiratory Distress, Accessory Muscle Use, Wheezes Cardiovascular: Present: Regular Rate and Rhythm, Normal S1, S2. No: Murmurs Abdomen: Present: Tenderness, Normal Bowel Sounds. No: Distention, Peritoneal Signs Upper Extremity: Present: Normal Inspection Lower Extremity: Present: NORMAL PULSES, Other (Right BKA). No: Edema, CALF TENDERNESS Neurological: Present: GCS=15, CN II-XII Intact, Speech Normal Skin: Present: Warm, Dry, Normal Color Psychiatric: Present: Alert, Oriented x 3 <Rick Diaz - Last Filed: 10/13/18 17:52> Vital Signs Temp Pulse Resp BP Pulse Ox 10/13/18 16:06 98.2 F 81 18 185/88 H 88 L <Kenny Martínez - Last Filed: 10/13/18 17:56> Medical Decision Making ED Course and Treatment: 10/13/18 16:05 CBC no leukocytosis CMP electrolytes wnl lipase WNL trop negative accuchecks bolus 1 liter NS, zofran 4mg, IV protonix CT abdomen and pelvis: showed epiploic appendicitis, and osteoblastic mets 10/13/18 17:[address] Lea May on the phone, will admit pt for observation for intractable nausea and vomiting 10/13/18 17:51 <Rick Diazron - Last Filed: 10/13/18 17:52> ED Course and Treatment: 10/13/18 16:16 Seen and examined with the resident. Our history and physical exam reveals an elderly diabetic gentleman who is blind complaining of nausea and vomiting with abdominal discomfort since yesterday. Symptoms began after he ate a meal of chicken and salad that he purchased from a restaurant. No diarrhea. No fever or chills. He reports his blood sugar is running about 160. No injury or trauma. His abdomen is soft with some plus minus generalized tenderness. No guarding and no rebound. 10/13/18 16:45 EKG shows normal sinus rhythm rate approximately [address] or T wave changes. 10/13/18 17:36 Patient failed p.o. challenge. Arrangements will be made for observation. - RAD Interpretation Radiology Orders: 10/13/18 15:50 ABD & PELVIS W/O PO OR IV CONT [CT] Stat X-ray chest one view shows no infiltrate effusion or cardiomegaly. Sink Cutter: ED Physician - Medication Orders Current Medication Orders: Sodium Chloride (Sodium Chloride 0.9%) 100 mls @ 125 mls/hr IV .Q48M SITA Sodium Chloride (Sodium Chloride 0.9%) 1,000 mls @ 500 mls/hr IV ONCE ONE Stop: 10/13/18 17:49 Discontinued Medications Ondansetron HCl (Zofran Inj) 4 mg IVP STAT STA Stop: 10/13/18 15:49 Pantoprazole Sodium (Protonix Ec Tab) 40 mg PO STAT STA Stop: 10/13/18 15:50 <Kenny Martínez - Last Filed: 10/13/18 17:56> Disposition/Present on Arrival - Present on Arrival Any Indicators Present on Arrival: No History of DVT/PE: No History of Uncontrolled Diabetes: No Urinary Catheter: No History of Decub. Ulcer: No History Surgical Site Infection Following: None - Disposition Have Diagnosis and Disposition been Completed?: No Disposition Time: 17:52 <Rick Diaz - Last Filed: 10/13/18 17:52> - Present on Arrival Any Indicators Present on Arrival: No History of DVT/PE: No History of Uncontrolled Diabetes: No Urinary Catheter: No History of Decub. Ulcer: No History Surgical Site Infection Following: None - Disposition Have Diagnosis and Disposition been Completed?: Yes Patient Plan: Observation <Kenny Martínez - Last Filed: 10/13/18 17:56> - Disposition Diagnosis: Blind, Nausea and vomiting, Abdominal pain Disposition: HOSPITALIZED Patient Problems: Current Active Problems Problem Status Onset Blind Acute Diarrhea Acute Vomiting Acute Condition: FAIR Referrals: Tristan May JD, MD [Primary Care Provider] - Follow up with primary Forms: [facility] (Telugu)
[2018-10-13] MEDS ORDERED: Pantoprazole 40 mg EC Tab PO STA (15:49)
[2018-10-13] MEDS ORDERED: Sodium Chloride 0.9% 1,000 ML IV ONE (15:50)
[2018-10-13] MEDS ORDERED: Sodium Chloride 0.9% 100 ML IV SCH (16:00)
[2018-10-13 16:28] LABS: BASO # 0.01 K/mm3 (0.0-2.0); BASO % 0.2 % (0.0-3.0); HEMOGLOBIN 12.2 g/dL (14.0-18.0); LYMPH # 0.9 (1.2-3.4); MEAN CELL VOLUME 77.9 fl (80.0-105.0); MEAN CORPUSCULAR HEMOGLOBIN 26.6 pg (25.0-35.0); MEAN CORPUSCULAR HGB CONC 34.2 g/dl (31.0-37.0); MEAN PLATELET VOLUME 9.9 fl (7.0-11.0); MONO # 0.5 (0.1-0.6); MONO % 7.8 % (1.0-6.0); RBC 4.58 10^6/uL (3.5-6.1); RED CELL DISTRIBUTION WIDTH 16.1 % (11.5-14.5); WHITE BLOOD COUNT 6.4 10^3/uL (4.5-11.0)
--- NOTE | 2018-10-13 17:05 | CT ---
Date of service: 10/13/2018 PROCEDURE: CT Abdomen and Pelvis without intravenous contrast HISTORY: Abdominal pain home COMPARISON: 01/18/2028 TECHNIQUE: CT scan of the abdomen and pelvis was performed without administration of intravenous contrast. Oral contrast was not administered. Coronal and sagittal reformatted images were obtained. Radiation dose: Total exam DLP = 646.92 mGy-cm. This CT exam was performed using one or more of the following dose reduction techniques: Automated exposure control, adjustment of the mA and/or kV according to patient size, and/or use of iterative reconstruction technique. FINDINGS: LOWER THORAX: There is dependent atelectasis in the lung bases. LIVER: Normal in size. No gross lesion or ductal dilatation. GALLBLADDER AND BILE DUCTS: Well distended. No calcified gallstones. No common bile duct dilatation. PANCREAS: Diffuse atrophy of the pancreas. SPLEEN: Normal in size. ADRENALS: Thickening of both adrenal glands without discrete nodule. KIDNEYS AND URETERS: Both kidneys are normal in size. No hydronephrosis or nephrolithiasis. There is a cortical scar in the left lower pole likely related to prior surgery VASCULATURE: Normal in caliber. No aortic aneurysm. There are advanced aortic atherosclerotic calcifications present. BOWEL: Evaluation of the bowel is limited in the absence of oral contrast. There are fluid-filled mildly normal caliber small bowel loops. The colon is unremarkable. No evidence for bowel obstruction. APPENDIX: Normal appendix. PERITONEUM: No free fluid. No free air. LYMPH NODES: There is extensive retroperitoneal common iliac and pelvic sidewall lymphadenopathy. BLADDER: Well distended and normal in appearance. REPRODUCTIVE: The prostate gland is normal in size. There are radiation seeds in the prostate gland. A banal implant remains in stable position. BONES: No acute fracture. There are multifocal sclerotic lesions in the visualized thoracic and lumbar vertebral bodies and in the spinous process of L1 vertebral body. There are also multifocal sclerotic lesions in the pelvis OTHER FINDINGS: There is a well-circumscribed round fat density mass with peripheral high attenuation rim and central high attenuation in the right lower quadrant anterior to the proximal ascending colon. IMPRESSION: 1. Findings are most compatible with epiploic appendicitis in the right lower quadrant. 2. Fluid-filled mildly dilated small bowel loops could represent acute nonspecific enteritis in the appropriate clinical setting. Clinical follow-up is advised. 3. Interval development of diffuse osteoblastic metastasis. 4. Extensive retroperitoneal, common iliac and pelvic sidewall metastatic lymphadenopathy.
[2018-10-13 17:26] LABS: ALB/GLOB RATIO 0.9 (1.1-1.8); ALBUMIN 4.2 g/dL (3.0-4.8); ALT/SGPT 38 U/L (7-56); AST/SGOT 47 U/L (17-59); BLOOD UREA NITROGEN 19 mg/dL (7-21); CALCIUM 9.4 mg/dL (8.4-10.5); GFR NON-AFRICAN AMERICAN > 60; LIPASE 43 U/L (23-300)
[2018-10-13 17:36] LABS: TROPONIN I < 0.01 ng/mL
[2018-10-13] MEDS: Insulin Reg-LOW-Coverage SC SCH (21:30)
[2018-10-13] MEDS: Oxycodone/Acetaminophen 5/325 mg Tab PO PRN (21:35)
[2018-10-14] MEDS: Oxycodone/Acetaminophen 5/325 mg Tab PO PRN (04:19)
--- NOTE | 2018-10-14 08:17 | RAD ---
Date of service: 10/13/2018 HISTORY: admit COMPARISON: 01/18/2018 FINDINGS: LUNGS: The lungs are well inflated. There is mild pulmonary venous congestion. No focal consolidation. PLEURA: No pleural effusions or pneumothorax. CARDIOVASCULAR: Heart size is top limits of normal. There aortic atherosclerotic calcifications present. OSSEOUS STRUCTURES: Within normal limits for the patient's age. VISUALIZED UPPER ABDOMEN: Normal. OTHER FINDINGS: None. IMPRESSION: No active pulmonary disease.
[2018-10-14] MEDS: Insulin Reg-LOW-Coverage SC SCH ×3 (08:51→17:48)
[2018-10-14] MEDS ORDERED: Dorzolamide 2%/Timolol 0.5% 100 DROP/10 ML BOTTLE OU SCH (11:00)
[2018-10-14] MEDS: Dorzolamide 2% Opht Sol 10ml OU SCH ×2 (13:32→17:51)
--- NOTE | 2018-10-14 20:01 | HP ---
DATE OF EXAM: 10/14/2018 HISTORY OF PRESENT ILLNESS: The patient is a 63-year-old male admitted through the emergency department on 10/13/2018 with abdominal pain and intractable vomiting. CT scan of the abdomen was consistent with mild enteritis. The patient has been stated on Ondansetron and IV fluids. The patient was noted to have some bloody vomitus as well. There is no diarrhea. No fever, no chills. No chest pain. No shortness of breath. PAST MEDICAL HISTORY: The patient's past medical history includes type 2 diabetes mellitus, hypertension, history of CVA with mild right hemiparesis. The patient has a history of glaucoma with bilateral blindness. PAST SURGICAL HISTORY: Includes status post partial nephrectomy for renal cell carcinoma, status post right below-knee amputation for peripheral vascular disease. The patient has a history of penile implant. ALLERGIES: THE PATIENT HAS NO KNOWN DRUG ALLERGIES. CURRENT MEDICATIONS: Include Diovan 180 mg daily, tramadol 50 mg twice daily, Flomax 0.4 mg daily, Januvia 100 mg daily, Humulin 70/30 55 units in the morning and 50 units at night, carvedilol 3.125 mg twice daily, Ecotrin 81 mg daily. He is also on Lumigan, Combigan, and Cosopt eye drops for glaucoma. FAMILY HISTORY: Noncontributory. SOCIAL HISTORY The patient lives alone. He is independent with ADLs, needs assistance with IADLs. There is no history of tobacco or alcohol use. REVIEW OF SYSTEMS The patient denies chest pain or shortness of breath. There is no jaundice. No dysuria. No pyuria. The patient does complain of some low back pain. PHYSICAL EXAMINATION GENERAL: The patient is a well-developed male in no acute distress. VITAL SIGNS: Blood pressure 201/73, temperature 98.2, pulse 84, respiratory rate 18. HEENT: Head is normocephalic, atraumatic. The patient is blind bilaterally. NECK: Supple with no thyromegaly. No carotid bruit. No adenopathy. LUNGS: Clear. HEART: Regular rate and rhythm. ABDOMEN: Soft with some mild diffuse discomfort on deep palpation with no guarding or rebound. EXTREMITIES: The patient is status post right below-knee amputation, his stump is healed with no edema. NEUROLOGIC: The patient is awake and oriented x3 without focal sensory or motor deficits. SKIN: Warm and dry. LABORATORY DATA: WBC is 6.4, hemoglobin 12.2, hematocrit 35.7. Sodium 139, potassium 4.4, chloride 101, CO2 of 29, a BUN 19, creatinine 0.8, glucose 179, alkaline phosphatase is elevated at 318, total protein is 8.7. Lipase is 43. Chest x-ray shows no active disease. CT scan of the abdomen and pelvis shows epiploic appendagitis in the right lower quadrant, fluid-filled mildly dilated small bowel loops possibly representing nonspecific enteritis, and with interval development of diffuse osteoblastic metastases and extensive retroperitoneal common iliac and pelvic sidewall metastatic adenopathy. IMPRESSION 1. Acute gastroenteritis with intractable vomiting. 2. History of renal cell carcinoma status post partial nephrectomy, rule out metastatic disease. 3. Type 2 diabetes mellitus. 4. Peripheral vascular disease status post right below-knee amputation. 5. Hypertension. 6. Blindness secondary to glaucoma. PLAN: Continue IV fluids, ondansetron for gastroenteritis. We will obtain PSA to rule out metastatic prostate cancer versus metastatic renal cell carcinoma. We will obtain bone scan. Also consider multiple myeloma. Monitor glucose levels. Social Work for discharge planning. Tristan May JD/ JASON
--- NOTE | 2018-10-15 07:16 | CARD ---
APPROVED REPORT Date of service: 10/13/2018 EKG Measurement Heart [id number] <Conclusion> Normal sinus rhythm Normal ECG
[2018-10-15] MEDS: Insulin Reg-LOW-Coverage SC SCH ×5 (09:49→23:02)
[2018-10-15] MEDS: Dorzolamide 2% Opht Sol 10ml OU SCH ×2 (10:01→18:14)
--- NOTE | 2018-10-15 15:33 | NM ---
Date of service: 10/15/2018 PROCEDURE: Whole Body Bone Scan HISTORY: Osseous metastatic disease. COMPARISON: 10/13/2018. CT abdomen and pelvis demonstrating sclerotic lesions thoracolumbar spine. Additional sclerotic lesions in the pelvis noted. TECHNIQUE: Following administration of 27.6 miCu of Tc MDP multiplanar whole body images were obtained. FINDINGS: Evidence for bony metastatic disease: Extensive including lumbar and thoracic spine. Additional abnormalities noted in the pelvis and ribs. Suspicious finding of intense increased uptake proximal right femur. Degenerative uptake: Cervical spine, bilateral knees. Physiologic uptake: Normal physiologic activity in the kidneys. Other findings: None. IMPRESSION: Widely disseminated osseous metastatic disease involving thoracolumbar spine, ribs, pelvis, proximal right femur.
--- NOTE | 2018-10-15 20:44 | CP.PCM.PN ---
Subjective - Date & Time of Evaluation Date of Evaluation: 10/15/18 Time of Evaluation: 16:00 - Subjective Subjective: resting comfortably, NAD Objective - Vital Signs/Intake and Output Vital Signs (last 24 hours): Temp Pulse Resp BP Pulse Ox 99.8 F H 82 18 112/63 93 L 10/15/18 14:00 10/15/18 18:08 10/15/18 14:00 10/15/18 18:08 10/15/18 14:00 Intake and Output: 10/15/18 10/16/18 18:59 06:59 Intake Total 480 Balance 480 - Medications Medications: Current Medications Amlodipine Besylate (Norvasc) 10 mg PO DAILY [facility] Last Admin: 10/15/18 09:50 Dose: 10 mg Aspirin (Ecotrin) 81 mg PO DAILY [facility] Last Admin: 10/15/18 09:51 Dose: 81 mg Carvedilol (Coreg) 6.25 mg PO BID [facility] Last Admin: 10/15/18 18:08 Dose: 6.25 mg Clonidine HCl (Catapres) 0.1 mg PO BID PRN PRN Reason: bp systolic>180, diastolic>110 Dorzolamide HCl (Trusopt) 1 ml OU BID [facility] Last Admin: 10/15/18 18:14 Dose: 1 drop Insulin Human Regular (Humulin R Low) 0 units SC [facility]; Protocol Last Admin: 10/15/18 18:07 Dose: 1 units Losartan Potassium (Cozaar) 100 mg PO DAILY [facility] Last Admin: 10/15/18 09:50 Dose: 100 mg Ondansetron HCl (Zofran Inj) 4 mg IVP Q4H PRN PRN Reason: Nausea/Vomiting Oxycodone/Acetaminophen (Percocet 5/325 Mg Tab) 1 tab PO Q6H PRN PRN Reason: Pain, severe (8-10) Stop: 10/16/18 20:33 Last Admin: 10/14/18 04:19 Dose: 1 tab Tamsulosin HCl (Flomax) 0.4 mg PO DAILY [facility] Last Admin: 10/15/18 09:50 Dose: 0.4 mg Timolol Maleate (Timoptic 0.5% Ophth Soln) 1 drop OU BID [facility] Last Admin: 10/15/18 18:14 Dose: 1 drop Tramadol HCl (Ultram) 50 mg PO TID [facility] Last Admin: 10/15/18 18:09 Dose: 50 mg - Labs Labs: 10/13/18 16:15 10/13/18 16:58 - Respiratory Exam Respiratory Exam: Clear to Ausculation Bilateral, NORMAL BREATHING PATTERN - Cardiovascular Exam Cardiovascular Exam: REGULAR RHYTHM - GI/Abdominal Exam GI & Abdominal Exam: Soft, Normal Bowel Sounds - Extremities Exam Extremities Exam: Normal Inspection - Neurological Exam Neurological Exam: Alert, Awake - Skin Skin Exam: Dry, Warm Assessment and Plan (1) Prostate cancer metastatic to bone Status: Suspected (2) Type II diabetes mellitus Status: Chronic (3) Hypertension Status: Chronic - Assessment and Plan (Free Text) Plan: oncology consult
[2018-10-16] MEDS: Insulin Reg-LOW-Coverage SC SCH ×5 (08:39→22:46)
--- NOTE | 2018-10-16 09:58 | CON ---
DATE: 10/16/2018 REASON FOR CONSULTATION: History of renal cancer, prostate cancer now with bony metastasis and intraabdominal lymphadenopathy. HISTORY OF PRESENT ILLNESS: Mr. Dorman is 63-year-old male admitted to the hospital with abdominal pain and intractable nausea and vomiting. CAT scan of the abdomen showed mild enteritis, extensive retroperitoneal lymphadenopathy. Also common iliac and pelvic side wall metastatic lymphadenopathy. He had multiple bony metastasis. Bone scan done on 10/15/2018 showed disseminated osseous metastatic disease involving thoracolumbar spine, ribs, pelvis, proximal right femur. He is currently on IV fluid and antiemetics. He has right below knee amputation. He is home bound and bed bound most of the time. He has a pet care attendant at home. Dr. May sees him at home. Denies any bony pains. Denies any weight loss. He has history of prostate cancer around 9 years ago, had seed implanted in the prostate. He also has history of renal cancer, had partial left-sided nephrectomy. PSA is elevated at 88. PAST MEDICAL HISTORY: Prostate cancer and renal cancer, diabetes mellitus, peripheral vascular disease, history of glaucoma and bilateral blindness, history of CVA, right-sided hemiparesis mild. PAST SURGICAL HISTORY: Partial nephrectomy left-side and right below amputation. ALLERGIES: NO KNOWN DRUG ALLERGIES. HOME MEDICATIONS: Diovan, insulin, Januvia, Flomax, Carvedilol, and aspirin. FAMILY HISTORY: Not contributory. SOCIAL HISTORY: Lives alone. He has a caregiver at home. No personal history of smoking or alcohol abuse. REVIEW OF SYSTEMS: As per HPI. Rest of 12-point review of system reviewed negative. PHYSICAL EXAMINATION: GENERAL: Comfortable in bed, in no acute distress. VITAL SIGNS: Temperature 98.7, heart rate 80 per minute, blood pressure 144/60, heart rate 62 per minute and oxygen saturation 95% on room air. Heart rate is 77. HEENT: Head is atraumatic and normocephalic. NECK: Supple. No lymphadenopathy. CHEST: Air entry present. Equal bilateral. No added sound. CARDIOVASCULAR: S1 and S2, normal. No murmur or gallop. ABDOMEN: Soft and nontender. No hepatosplenomegaly. No rebound tenderness. EXTREMITIES: Right below knee amputation. Left no edema. NEUROLOGIC: Awake, alert and oriented x3. No focal sensory motor deficit. LABORATORY DATA: White count 6.4, hemoglobin 12.2, hematocrit 35.7 and platelet 136. Sodium 139, potassium 4.4, BUN 19, creatinine 0.8, calcium 9.4, bilirubin 0.7, PSA 88, alkaline phosphatase 318 and troponin 0.01. Imaging as per HPI. ASSESSMENT: 1. Extensive metastatic disease in the abdomen retroperitoneal lymphadenopathy. 2. Extensive metastatic disease in the bones. History of renal cancer, prostate cancer. Peripheral vascular disease. 3. Legally blind. 4. Diabetes mellitus type 2. PLAN: He has extensive metastatic disease. Possibility of renal cell cancer versus prostate cancer. I discussed with the patient about CT-guided biopsy and treatment which will be based on the type of metastatic disease whether prostate or renal cell cancer. He agreed for biopsy and wants to get treated. Discussed with Dr. May. Discussed with Dr. Jf Lanier. We will consider biopsy of either bony metastatic lesion or retroperitoneal lymph nodes for a definitive diagnoses. The patient is home bound visits him at home. Based on the pathology of the metastatic lesion, we would be able to offer treatment options to him. Treatment for stage IV cancer might be challenging for him because of the other comorbid conditions. Thank you Dr. May, for allowing us to participate in Mr. Dorman's care. We will continue to follow. Meron Bustos MD [facility]
--- NOTE | 2018-10-16 10:18 | CP.PCM.PCO ---
Additional Comments - Additional Comments Additional Comments: Pt seen and examined at bedside. In no acute distress. Denies nausea and vomiting. Bone scan result noted. Dr. Bustos recommends biopsy of either bony metastatic lesion or retroperitoneal lymph nodes. Pending biopsy by Dr. Lanier. Will continue to follow. ITS Impressions Abdomen/Pelvis CT 10/13/18 15:50 IMPRESSION: 1. Findings are most compatible with epiploic appendicitis in the right lower quadrant. 2. Fluid-filled mildly dilated small bowel loops could represent acute nonspecific enteritis in the appropriate clinical setting. Clinical follow-up is advised. 3. Interval development of diffuse osteoblastic metastasis. 4. Extensive retroperitoneal, common iliac and pelvic sidewall metastatic lymphadenopathy. Chest X-Ray 10/13/18 17:31 IMPRESSION: No active pulmonary disease. Bone Scan Nuclear Medicine 10/15/18 10:51 IMPRESSION: Widely disseminated osseous metastatic disease involving thoracolumbar spine, ribs, pelvis, proximal right femur.
[2018-10-16] MEDS: Dorzolamide 2% Opht Sol 10ml OU SCH ×2 (10:32→17:18)
--- NOTE | 2018-10-16 16:09 | CP.PCM.PN ---
Subjective - Date & Time of Evaluation Date of Evaluation: 10/16/18 Time of Evaluation: 15:30 - Subjective Subjective: resting comfortably, NAD Objective - Vital Signs/Intake and Output Vital Signs (last 24 hours): Temp Pulse Resp BP Pulse Ox 97.6 F 66 18 134/65 94 L 10/16/18 14:00 10/16/18 14:00 10/16/18 14:00 10/16/18 14:00 10/16/18 14:00 Intake and Output: 10/16/18 10/16/18 06:59 18:59 Intake Total 120 Output Total 700 400 Balance -700 -280 - Medications Medications: Current Medications Amlodipine Besylate (Norvasc) 10 mg PO DAILY [facility] Last Admin: 10/16/18 10:30 Dose: 10 mg Aspirin (Ecotrin) 81 mg PO DAILY [facility] Last Admin: 10/16/18 10:30 Dose: 81 mg Carvedilol (Coreg) 6.25 mg PO BID [facility] Last Admin: 10/16/18 10:31 Dose: 6.25 mg Clonidine HCl (Catapres) 0.1 mg PO BID PRN PRN Reason: bp systolic>180, diastolic>110 Dorzolamide HCl (Trusopt) 1 ml OU BID [facility] Last Admin: 10/16/18 10:32 Dose: 1 drop Insulin Human Regular (Humulin R Low) 0 units SC [facility]; Protocol Last Admin: 10/16/18 12:22 Dose: Not Given Losartan Potassium (Cozaar) 100 mg PO DAILY [facility] Last Admin: 10/16/18 10:31 Dose: 100 mg Ondansetron HCl (Zofran Inj) 4 mg IVP Q4H PRN PRN Reason: Nausea/Vomiting Oxycodone/Acetaminophen (Percocet 5/325 Mg Tab) 1 tab PO Q6H PRN PRN Reason: Pain, severe (8-10) Stop: 10/16/18 20:33 Last Admin: 10/14/18 04:19 Dose: 1 tab Tamsulosin HCl (Flomax) 0.4 mg PO DAILY [facility] Last Admin: 10/16/18 10:30 Dose: 0.4 mg Timolol Maleate (Timoptic 0.5% Oph Soln) 1 drop OU BID [facility] Last Admin: 10/16/18 10:32 Dose: 1 drop Tramadol HCl (Ultram) 50 mg PO TID [facility] Last Admin: 10/16/18 10:30 Dose: 50 mg - Labs Labs: 10/13/18 16:15 10/13/18 16:58 - Respiratory Exam Respiratory Exam: Clear to Ausculation Bilateral, NORMAL BREATHING PATTERN - Cardiovascular Exam Cardiovascular Exam: REGULAR RHYTHM - GI/Abdominal Exam GI & Abdominal Exam: Soft, Normal Bowel Sounds - Back Exam Back Exam: NORMAL INSPECTION - Neurological Exam Neurological Exam: Alert, Awake Assessment and Plan (1) Prostate cancer metastatic to bone Status: Suspected (2) Type II diabetes mellitus Status: Chronic (3) Hypertension Status: Chronic - Assessment and Plan (Free Text) Plan: oncology consult appreciated, for possible biopsy of bony lesion
[2018-10-17] MEDS: Insulin Reg-LOW-Coverage SC SCH ×3 (08:40→21:28)
[2018-10-17] MEDS: Dorzolamide 2% Opht Sol 10ml OU SCH ×2 (10:11→18:42)
[2018-10-17 14:31] LABS: INR 1.15; PARTIAL THROMBOPLASTIN TIME 36.2 Seconds (26.9-38.3); PROTHROMBIN TIME 12.8 SECONDS (9.4-12.5)
[2018-10-17] MEDS ORDERED: Midazolam 2 MG/2 ML VIAL ONE (16:09)
[2018-10-17] MEDS ORDERED: Midazolam 2 MG/2 ML VIAL IVP ONE (16:40)
[2018-10-17] MEDS ORDERED: Sodium Chloride 0.45% 1,000 ML IV SCH (16:45)
--- NOTE | 2018-10-17 17:49 | CT ---
PROCEDURE: CT guided left external iliac lymph node biopsy biopsy. HISTORY: Diffuse retroperitoneal and pelvic lymphadenopathy. Bony metastasis. History prostate CA and renal cell carcinoma. Evaluate for metastatic disease. PHYSICIAN(S): Jf Lanier MD. TECHNIQUE: The relative risks and indications of the procedure were explained to the patient and consent obtained. The patient was placed supine on the CT scanner and preliminary images through the pelvis obtained. Conscious sedation and monitoring were provided throughout the procedure by a nurse. A 3 x 5 cm enlarged left external iliac lymph node was selected for biopsy.. A anterior left lower quadrant approach was selected and the area prepped and draped in the usual sterile fashion. 1% Xylocaine was used to anesthetize the skin and soft tissues. A 17-gauge guiding needle was advanced into the 3 x 5 cm left external iliac lymph nodes. Its position was confirmed with CT. Using coaxial technique, multiple core biopsies were obtained. The postprocedure images show no evidence of significant hemorrhage. IMPRESSION: 1. CT-guided left external iliac lymph node biopsy as described above.
--- NOTE | 2018-10-17 18:26 | CP.PCM.PN ---
Subjective - Date & Time of Evaluation Date of Evaluation: 10/17/18 Time of Evaluation: 01:30 - Subjective Subjective: NAD, resting comfortably Objective - Vital Signs/Intake and Output Vital Signs (last 24 hours): Temp Pulse Resp BP Pulse Ox 98 F 62 12 100/53 L 95 10/17/18 17:28 10/17/18 17:28 10/17/18 17:28 10/17/18 17:28 10/17/18 17:28 Intake and Output: 10/17/18 10/17/18 06:59 18:59 Intake Total 240 240 Output Total 300 400 Balance -60 -160 - Medications Medications: Current Medications Amlodipine Besylate (Norvasc) 10 mg PO DAILY [facility] Last Admin: 10/17/18 10:11 Dose: 10 mg Aspirin (Ecotrin) 81 mg PO DAILY [facility] Last Admin: 10/17/18 10:13 Dose: 81 mg Carvedilol (Coreg) 6.25 mg PO BID [facility] Last Admin: 10/17/18 10:13 Dose: 6.25 mg Clonidine HCl (Catapres) 0.1 mg PO BID PRN PRN Reason: bp systolic>180, diastolic>110 Docusate Sodium (Colace) 100 mg PO BID [facility] Dorzolamide HCl (Trusopt) 1 ml OU BID [facility] Last Admin: 10/17/18 10:11 Dose: 1 drop Sodium Chloride (Sodium Chloride 0.45%) 1,000 mls @ 80 mls/hr IV .[id number] [facility] Stop: 10/17/18 23:00 Insulin Human Regular (Humulin R Low) 0 units SC [facility]; Protocol Last Admin: 10/17/18 11:58 Dose: 2 units Losartan Potassium (Cozaar) 100 mg PO DAILY [facility] Last Admin: 10/17/18 10:21 Dose: 100 mg Ondansetron HCl (Zofran Inj) 4 mg IVP Q4H PRN PRN Reason: Nausea/Vomiting Polyethylene Glycol (Miralax) 17 gm PO BID [facility] Tamsulosin HCl (Flomax) 0.4 mg PO DAILY [facility] Last Admin: 10/17/18 10:13 Dose: 0.4 mg Timolol Maleate (Timoptic 0.5% Ophth Soln) 1 drop OU BID [facility] Last Admin: 10/17/18 10:11 Dose: 1 drop Tramadol HCl (Ultram) 50 mg PO TID [facility] Last Admin: 10/17/18 15:06 Dose: 50 mg - Labs Labs: 10/13/18 16:15 10/13/18 16:58 PT 12.8 SECONDS (9.4-12.5) H 10/17/18 14:00 INR 1.15 10/17/18 14:00 APTT 36.2 Seconds (26.9-38.3) 10/17/18 14:00 - Respiratory Exam Respiratory Exam: Clear to Ausculation Bilateral, NORMAL BREATHING PATTERN - Cardiovascular Exam Cardiovascular Exam: REGULAR RHYTHM - GI/Abdominal Exam GI & Abdominal Exam: Soft, Normal Bowel Sounds - Neurological Exam Neurological Exam: Alert, Awake - Skin Skin Exam: Dry, Warm Assessment and Plan (1) Prostate cancer metastatic to bone Status: Suspected (2) Type II diabetes mellitus Status: Chronic (3) Hypertension Status: Chronic - Assessment and Plan (Free Text) Plan: for biopsy today, continue oncology follow-up
[2018-10-17] MEDS: POLYETHYLENE GLYCOL 3350 17 GM/Dose PACKET PO SCH (18:35)
--- NOTE | 2018-10-17 22:28 | CP.PCM.PN ---
Subjective - Date & Time of Evaluation Date of Evaluation: 10/17/18 Time of Evaluation: 16:00 - Subjective Subjective: Comfortable in bed. No nausea, vomiting. Underwent CT guided biopsy of retroperitoneal mass. Tolerating oral diet today . Objective - Vital Signs/Intake and Output Vital Signs (last 24 hours): Temp Pulse Resp BP Pulse Ox 98.2 F 61 20 109/62 95 10/17/18 21:35 10/17/18 21:35 10/17/18 21:35 10/17/18 21:35 10/17/18 21:35 Intake and Output: 10/17/18 10/18/18 18:59 06:59 Intake Total 340 Output Total 400 Balance -60 - Medications Medications: Current Medications Amlodipine Besylate (Norvasc) 10 mg PO DAILY [facility] Last Admin: 10/17/18 10:11 Dose: 10 mg Aspirin (Ecotrin) 81 mg PO DAILY [facility] Last Admin: 10/17/18 10:13 Dose: 81 mg Carvedilol (Coreg) 6.25 mg PO BID [facility] Last Admin: 10/17/18 18:37 Dose: 6.25 mg Clonidine HCl (Catapres) 0.1 mg PO BID PRN PRN Reason: bp systolic>180, diastolic>110 Docusate Sodium (Colace) 100 mg PO BID [facility] Last Admin: 10/17/18 18:35 Dose: 100 mg Dorzolamide HCl (Trusopt) 1 ml OU BID [facility] Last Admin: 10/17/18 18:42 Dose: 1 drop Sodium Chloride (Sodium Chloride 0.45%) 1,000 mls @ 80 mls/hr IV .[id number] [facility] Stop: 10/17/18 23:00 Last Admin: 10/17/18 18:46 Dose: 80 mls/hr Insulin Human Regular (Humulin R Low) 0 units SC [facility]; Protocol Last Admin: 10/17/18 21:28 Dose: Not Given Insulin Lispro Protam/Lispro Human (Humalog Mix 75/25) 10 units SC BRKDIN [facility] Losartan Potassium (Cozaar) 100 mg PO DAILY [facility] Last Admin: 10/17/18 10:21 Dose: 100 mg Ondansetron HCl (Zofran Inj) 4 mg IVP Q4H PRN PRN Reason: Nausea/Vomiting Polyethylene Glycol (Miralax) 17 gm PO BID [facility] Last Admin: 10/17/18 18:35 Dose: 17 gm Tamsulosin HCl (Flomax) 0.4 mg PO DAILY [facility] Last Admin: 10/17/18 10:13 Dose: 0.4 mg Timolol Maleate (Timoptic 0.5% Ophth Soln) 1 drop OU BID [facility] Last Admin: 10/17/18 18:42 Dose: 1 drop Tramadol HCl (Ultram) 50 mg PO TID [facility] Last Admin: 10/17/18 18:35 Dose: 50 mg - Labs Labs: 10/13/18 16:15 10/13/18 16:58 PT 12.8 SECONDS (9.4-12.5) H 10/17/18 14:00 INR 1.15 10/17/18 14:00 APTT 36.2 Seconds (26.9-38.3) 10/17/18 14:00 - Constitutional Appears: Chronically Ill - Head Exam Head Exam: ATRAUMATIC, NORMAL INSPECTION, NORMOCEPHALIC - Eye Exam Eye Exam: Normal appearance - ENT Exam ENT Exam: Mucous Membranes Moist, Normal Exam - Neck Exam Neck Exam: Normal Inspection - Respiratory Exam Respiratory Exam: Clear to Ausculation Bilateral, NORMAL BREATHING PATTERN - Cardiovascular Exam Cardiovascular Exam: REGULAR RHYTHM, +S1, +S2 - GI/Abdominal Exam GI & Abdominal Exam: Soft, Normal Bowel Sounds - Extremities Exam Extremities Exam: Normal Inspection - Neurological Exam Neurological Exam: Alert, Awake, Oriented x3 - Skin Skin Exam: Normal Color, Warm Assessment and Plan - Assessment and Plan (Free Text) Assessment: 1. Stage IV malignancy : CT guided biopsy done today. Differential diagnosis include renal cell Cancer vs prostate Cancer. 2. abdominal symptoms resolved. 3. DM II 4. PVD : below knee amputation right . 5. DVT prophylaxis : lovenox 30 mg SQ daily. Thank you Dr. May for allowing us to participate in his care.
[2018-10-18] MEDS: Insulin Reg-LOW-Coverage SC SCH ×3 (08:26→16:58)
[2018-10-18] MEDS: Insulin Lispro (humaLOG) MIX 75/25(10 ml) SC SCH ×2 (08:47→16:57)
[2018-10-18] MEDS: Dorzolamide 2% Opht Sol 10ml OU SCH ×2 (10:12→17:35)
[2018-10-18] MEDS: POLYETHYLENE GLYCOL 3350 17 GM/Dose PACKET PO SCH ×2 (10:16→17:33)
[2018-10-18] MEDS: Enoxaparin 30 mg Syringe SC SCH (10:16)
[2018-10-18 11:17] LABS: HEMOGLOBIN 11.2 g/dL (14.0-18.0); MEAN CELL VOLUME 76.9 fl (80.0-105.0); MEAN CORPUSCULAR HEMOGLOBIN 25.9 pg (25.0-35.0); MEAN CORPUSCULAR HGB CONC 33.7 g/dl (31.0-37.0); MEAN PLATELET VOLUME 9.9 fl (7.0-11.0); RBC 4.32 10^6/uL (3.5-6.1); RED CELL DISTRIBUTION WIDTH 14.8 % (11.5-14.5)
[2018-10-18 11:24] LABS: BLOOD UREA NITROGEN 39 mg/dL (7-21); CALCIUM 8.5 mg/dL (8.4-10.5); GFR NON-AFRICAN AMERICAN > 60
[2018-10-18 13:43] VITALS: O2SAT 97
[2018-10-18 23:04] VITALS: PULSE 63; RESP 20; TEMP 98.8
--- NOTE | 2018-10-19 00:34 | CP.PCM.PN ---
Subjective - Date & Time of Evaluation Date of Evaluation: 10/18/18 Time of Evaluation: 18:00 - Subjective Subjective: Comfortable in bed. nausea , vomiting resolved. No abdominal pain. Objective - Vital Signs/Intake and Output Vital Signs (last 24 hours): Temp Pulse Resp BP Pulse Ox 98.8 F 63 20 117/65 97 10/18/18 23:00 10/18/18 23:00 10/18/18 23:00 10/18/18 23:00 10/18/18 23:00 Intake and Output: 10/18/18 10/19/18 18:59 06:59 Intake Total 480 240 Output Total 200 450 Balance 280 -210 - Medications Medications: Current Medications Amlodipine Besylate (Norvasc) 10 mg PO DAILY [facility] Last Admin: 10/18/18 10:12 Dose: 10 mg Aspirin (Ecotrin) 81 mg PO DAILY [facility] Last Admin: 10/18/18 10:15 Dose: 81 mg Carvedilol (Coreg) 6.25 mg PO BID [facility] Last Admin: 10/18/18 17:34 Dose: 6.25 mg Clonidine HCl (Catapres) 0.1 mg PO BID PRN PRN Reason: bp systolic>180, diastolic>110 Docusate Sodium (Colace) 100 mg PO BID [facility] Last Admin: 10/18/18 17:33 Dose: 100 mg Dorzolamide HCl (Trusopt) 1 ml OU BID [facility] Last Admin: 10/18/18 17:35 Dose: 1 drop Enoxaparin Sodium (Lovenox) 30 mg SC DAILY [facility]; Protocol Last Admin: 10/18/18 10:16 Dose: 30 mg Insulin Human Regular (Humulin R Low) 0 units SC ACHS [facility]; Protocol Last Admin: 10/18/18 16:58 Dose: Not Given Insulin Lispro Protam/Lispro Human (Humalog Mix 75/25) 10 units SC BRKDIN [facility] Last Admin: 10/18/18 16:57 Dose: 10 units Losartan Potassium (Cozaar) 100 mg PO DAILY [facility] Last Admin: 10/18/18 10:12 Dose: 100 mg Ondansetron HCl (Zofran Inj) 4 mg IVP Q4H PRN PRN Reason: Nausea/Vomiting Polyethylene Glycol (Miralax) 17 gm PO BID [facility] Last Admin: 10/18/18 17:33 Dose: 17 gm Tamsulosin HCl (Flomax) 0.4 mg PO DAILY [facility] Last Admin: 10/18/18 10:14 Dose: 0.4 mg Timolol Maleate (Timoptic 0.5% Ophth Soln) 1 drop OU BID [facility] Last Admin: 10/18/18 17:38 Dose: 1 drop Tramadol HCl (Ultram) 50 mg PO TID [facility] Last Admin: 10/18/18 17:32 Dose: 50 mg - Labs Labs: 10/18/18 11:00 10/18/18 11:00 PT 12.8 SECONDS (9.4-12.5) H 10/17/18 14:00 INR 1.15 10/17/18 14:00 APTT 36.2 Seconds (26.9-38.3) 10/17/18 14:00 - Constitutional Appears: Non-toxic - Head Exam Head Exam: ATRAUMATIC, NORMAL INSPECTION, NORMOCEPHALIC - ENT Exam ENT Exam: Mucous Membranes Moist, Normal Exam - Neck Exam Neck Exam: Normal Inspection - Respiratory Exam Respiratory Exam: Clear to Ausculation Bilateral, NORMAL BREATHING PATTERN - Cardiovascular Exam Cardiovascular Exam: REGULAR RHYTHM, +S1, +S2 - GI/Abdominal Exam GI & Abdominal Exam: Soft, Normal Bowel Sounds - Neurological Exam Neurological Exam: Alert, Awake, Oriented x3 - Skin Skin Exam: Normal Color, Warm Assessment and Plan - Assessment and Plan (Free Text) Assessment: Stage IV cancer. Disease in abdomen, bones. High tumor burden based on imaging studies. Biopsy pathology pending. Discussed with patient. He is home bound, Dr. May sees him at home. he refused to come to office for follow up. I will discuss with Dr. May after biopsy results.
[2018-10-19] MEDS: Insulin Lispro (humaLOG) MIX 75/25(10 ml) SC SCH (08:00)
[2018-10-19] MEDS: Insulin Reg-LOW-Coverage SC SCH (08:05)
[2018-10-19] MEDS: Enoxaparin 30 mg Syringe SC SCH (09:54)
[2018-10-19] MEDS: Dorzolamide 2% Opht Sol 10ml OU SCH (09:54)
[2018-10-19 09:55] VITALS: BP 134/64
[2018-10-19] MEDS: POLYETHYLENE GLYCOL 3350 17 GM/Dose PACKET PO SCH (09:55)
--- NOTE | 2018-10-20 01:52 | DS ---
HOSPITAL COURSE The patient is a 63-year-old male admitted through the emergency department on 10/13/2018 with abdominal pain and vomiting. A CT scan of the abdomen was consistent with mild enteritis and the patient improved clinically. He was also noted to have some osteoblastic pelvic lesions on CT scan of the chest. A bone scan was performed which showed metastatic disease involving bone. He was seen in consultation by Oncology, Dr. Bustos. Consultation with Dr. Jf Lanier was performed and the patient underwent biopsy of the left iliac node, the result of which is pending. The patient is now medically stable for discharge. PHYSICAL EXAMINATION VITAL SIGNS: Blood pressure 134/64, temperature 98.8, pulse 63, respiratory rate 20. LUNGS: Clear. HEART: Regular rate and rhythm. ABDOMEN: Soft, nontender. Bowel sounds are normoactive. IMPRESSION 1. Metastatic carcinoma, probably of the prostate. The patient had an elevated prostate specific antigen of approximately 88. Also rule out metastatic renal cell carcinoma, which is less likely. 2. Acute gastroenteritis, resolved. 3. Type 2 diabetes mellitus. 4. Peripheral vascular disease status post right below-knee amputation. 5. Hypertension. 6. Blindness secondary to glaucoma. PLAN: The patient was discharged to home on the following medications; Diovan 180 mg daily, Detrol LA 2 mg daily, Flomax 0.4 mg daily, Januvia 100 mg daily, insulin Humulin 70/30 20 units subcu with breakfast and dinner, dorzolamide and timolol eyedrops, carvedilol 3.125 mg twice daily, Combigan eyedrops, Lumigan eyedrops, and Percocet 5/325 mg 1 tablet every 6 hours. The patient will be maintained on a consistent carbohydrate diet. Activities ad libitum. He will follow up as an outpatient with Oncology, Dr. Bustos who will start treatment after results of the biopsy. JUAN MIGUEL Lopez MD
== END 2018-10-19 13:07 | disposition home health service (06) | DRG 357 ==
LOC: ED 15:24 → ERH 17:49 → 5RSO 19:58 → OBSVTOIN 10-15 16:26
PROVIDERS: ADMIT Internal Medicine; ATTEND Internal Medicine
PROC: 07BC3ZX Excision of Pelvis Lymphatic, Percutaneous Approach, Diagnostic (ICD-10-PCS; principal; 2018-10-17 15:00)
DX: K52.9 Noninfective gastroenteritis and colitis, unspecified (principal); I69.351 Hemiplegia and hemiparesis following cerebral infarction affecting right dominant side; C79.51 Secondary malignant neoplasm of bone; C77.5 Secondary and unspecified malignant neoplasm of intrapelvic lymph nodes; C61 Malignant neoplasm of prostate; I10 Essential (primary) hypertension; E11.51 Type 2 diabetes mellitus with diabetic peripheral angiopathy without gangrene; K59.00 Constipation, unspecified; H54.8 Legal blindness, as defined in USA; H40.9 Unspecified glaucoma; Z85.528 Personal history of other malignant neoplasm of kidney; Z90.5 Acquired absence of kidney; Z89.511 Acquired absence of right leg below knee